=== PATIENT | female | born 1965 | race Two or more races ===

== ENCOUNTER → 2024-02-17 | Outpatient (CLI) | payer MEDICAID, SELFPAY ==
--- NOTE | 2024-02-17 16:15 | XR_ITS ---
Examination: Breast ultrasound, unilateral, right complete Date and time of exam: February 17, 2024 1604 hours INDICATIONS: Ultrasound right breast 10/28/2022 11:00 nodule 10 x 10 mm Technique: Real-time rivas scale ultrasonographic imaging performed right breast including all 4 quadrants as well as nipple retroareolar and axillary region. Findings: 11:00 oval mass circumscribed 9 x 3 x 8 mm IMPRESSION: BI-RADS Category 2: Benign findings
== END | disposition home or self-care (01) ==
LOC: CDIM 15:58
PROVIDERS: Referring Provider Nurse Practitioner Family; Visit Provider Nurse Practitioner Family
DX: N63.11 Unspecified lump in the right breast, upper outer quadrant (principal)
CPT/HCPCS: 76641

== ENCOUNTER 2024-05-16 09:00 | Outpatient (RCR) | payer MEDICAID, SELFPAY ==
--- NOTE | 2024-05-08 09:10 | PTNOTE_ITS ---
PT OP Initial Eval Patient Information Outpatient Physical Therapy Treatment Date: 05/08/24 Visit Reasons: Pain in left shoulder Medical Diagnosis: M25.512 Treatment Dx #1: L shoulder pain Treatment Dx #2: Dec L shoulder ROM Start of Care: 05/08/24 Date of Onset: 2 yrs ago Smoking Status Smoking Status: Never smoker Initial Assessment Subjective: Pt is 58 yr old [place] islander speaking female who reports 2 yrs of L shoulder pain insidious onset. Pain limits reaching behind the back. Increased pain with reaching up and lifting things and HH chores. PMH: none reported Imaging: Xray report in chart-negative Pt goal: to get rid of the pain Objective: L shoulder AROM: ? FF: 146 deg ? Abd: 125 deg ? ER: 75 deg ? HBB: to L glute with pain ? Strength: 3+/5 in all planes ? PROM: end-range pain with capsular tightness Lucinda's: positive cross arm reach: positive Full can: positive Empty can: negative Assessment: Pt presents with decreased ROM and strength of L shoulder consistent with RC impingement/tendinopathy. Pt requires skilled therapy to meet goals and has fair rehab potential. She may benefit from further diagnostic imaging of L shoulder. 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 Ind with HEP ? 2. Improved AROM of L shoulder to at least 135 deg FF, 125 deg abduction and 90 deg ? ER ? 3. Improved HBB ROM to L3 ? 4. Pt will reach OH x10 with <=4/10 pain Treatment Plan 1. Manual therapy ? 2. Therex ? 3. Modalities as indicated, moist heat pack, ice, electrical stimulation, Frequency and Duration: 1-2x a week for 4 Rx visits per MD referral Certification Dates: 05/08/24 to 07/08/24 Procedure Charges OP PT Eval Mod Complex 30 minutes: Yes
--- NOTE | 2024-05-16 10:29 | PT.ODAYNRPT ---
PT Outpatient Daily Note OP Daily Note Outpatient Physical Therapy Treatment Date: 05/16/24 Visit Reasons: Pain in left shoulder Subjective: Same as time of evaluation Objective: See F/S for therex MHP x5' R shoulder Assessment: Good AAROM into FF and abduction with drake and richard today Plan: Continue per POC Length of Time (minutes) of Treatment: 30 Minutes Procedure Charges Therapeutic Exercise 30 minutes: Yes
== END 2024-05-21 23:59 | disposition home or self-care (01) ==
LOC: CPTX 09:00
PROVIDERS: PCP Family Medicine; Referring Provider Family Medicine; Visit Provider Family Medicine
DX: M25.512 Pain in left shoulder (principal)
CPT/HCPCS: 97110; 97162

== ENCOUNTER 2024-06-14 10:30 | Outpatient (RCR) | payer MEDICAID, SELFPAY ==
--- NOTE | 2024-05-23 09:22 | PT.ODAYNRPT ---
PT Outpatient Daily Note OP Daily Note Outpatient Physical Therapy Treatment Date: 05/23/24 Visit Reasons: Pain in left shoulder Subjective: Same as last time Objective: See F/S for therex MHP x5' R shoulder Assessment: Good AAROM into FF and abduction with drake and richard today Plan: Continue per POC Length of Time (minutes) of Treatment: 30 Minutes Procedure Charges Therapeutic Exercise 30 minutes: Yes
--- NOTE | 2024-05-29 13:32 | PT.ODAYNRPT ---
PT Outpatient Daily Note OP Daily Note Outpatient Physical Therapy Treatment Date: 05/29/24 Visit Reasons: Pain in left shoulder Subjective: Continued pain with reaching Objective: See F/S for therex MHP x5' L shoulder Assessment: Good AAROM into FF and abduction with drake and richard today Plan: Continue per POC Length of Time (minutes) of Treatment: 30 Minutes Procedure Charges Therapeutic Exercise 30 minutes: Yes
--- NOTE | 2024-06-14 11:05 | PT.ODAYNRPT ---
PT Outpatient Daily Note OP Daily Note Outpatient Physical Therapy Treatment Date: 06/14/24 Visit Reasons: Pain in left shoulder Subjective: Pt reports L shoulder continues to be painful. Pt shared that she can move it ok but it is really tender and painful on lateral part of the shoudler. Objective: Please see flow sheet for ther ex list. Assessment: Pt can perform AARom with minimal pain. Plan: Continue with poC. Length of Time (minutes) of Treatment: 30 Minutes Procedure Charges Therapeutic Exercise 30 minutes: Yes
== END 2024-06-20 23:59 | disposition home or self-care (01) ==
LOC: CPTX 10:30
PROVIDERS: PCP Family Medicine; Referring Provider Family Medicine; Visit Provider Family Medicine
DX: M25.512 Pain in left shoulder (principal)
CPT/HCPCS: 97110

== ENCOUNTER 2024-06-26 16:34 | Outpatient (RCR) | payer MEDICAID, SELFPAY ==
--- NOTE | 2024-06-26 18:17 | PT.ODS1RPT ---
PT OP Progress/Discharge Note Date of Service: 06/26/24 Progress Note/DC Note Progress Note/Discharge Note: DC Note Patient Information Visit Reasons: Pain in left shoulder Service Continue Service or Discharge: Discharge Discharge Date: 06/26/24 Status Subjective: The L shoulder continues to hurt about the same as before therapy. Objective: L shoulder AROM: FF: 140 deg Abd: 130 deg ER: 75 deg Hand behind back: L glute Strength: 3+/5 in available ROM Assessment: Pt has attended the eval and 5 Rx sessions with limited progress with therapy goals. Pt has pain that limits ROM into hand behind back consistent with RC tendinopathy. Pt hasn't met goals due to this but has met the goal of FF and abduction to over 125 deg and reaching OH x10 with low pain. PT recommends further diagnostic imaging of L shoulder such as MRI. Plan: D/C with updated HEP Procedure Charges Therapeutic Exercise 30 minutes: Yes
== END 2024-07-21 23:59 | disposition home or self-care (01) ==
LOC: CPTX 16:34
PROVIDERS: PCP Family Medicine; Referring Provider Family Medicine; Visit Provider Family Medicine
DX: M25.512 Pain in left shoulder (principal)
CPT/HCPCS: 97110

== ENCOUNTER → 2025-01-11 | Outpatient (CLI) | payer MEDICAID, SELFPAY ==
--- NOTE | 2025-01-11 07:30 | XR_ITS ---
MRI shoulder, left, without contrast. Date and time: January 11, 2025, 0759 hours Technique: Multiple axial, sagittal and coronal sections of the shoulder have been obtained. Siemens high-resolution 1.5 Emma MRI scanner is utilized. Axial fat-suppressed sections, TR 2350, TE 18 T2-weighted coronal fat-saturated images, TR 3500, TE 7100 T1-weighted coronal images, TR 500, TE 15 T2-weighted sagittal fat-saturated images, TR 3500, TE 57 T1-weighted sagittal sections, TR 504, TE 13. Findings: 10 mm full-thickness rotator cuff tear Subscapularis insertion is intact. Subscapularis bursa is not seen. Long head of the biceps is in the bicipital groove. No definite tear of the biceps superior labral anchor is seen. Retraction of the musculotendinous junction of the rotator cuff is minimal. Tendinosis pattern is significant. Distance between the acromium and humeral head is 7 mm Atrophy of the supraspinatus muscle is severe. Atrophy of the infraspinatus muscle is severe. Sagittal sections demonstrate a ho horizontal acromion. Acromioclavicular joint demonstrates moderate osteoarthritis. Osacromiale is not identified. Labral margin is intact. Bony glenoid fossa on the sagittal sections does not demonstrate osseous defect. Occult fracture or area of avascular necrosis is not seen. Acromioclavicular joint separation is not visible. Defect in the posterolateral margin of the humeral head is not seen Impression: 10 mm full-thickness rotator cuff tear
== END | disposition home or self-care (01) ==
PROVIDERS: PCP Family Medicine; Referring Provider Family Medicine; Visit Provider Family Medicine
DX: M25.512 Pain in left shoulder (principal); M75.102 Unspecified rotator cuff tear or rupture of left shoulder, not specified as traumatic
CPT/HCPCS: 73221